=== PATIENT | female | born 1970 | race Two or more races ===

== ENCOUNTER → 2020-06-09 | Outpatient (CLI) | payer OTHER ==
[~2020-06-09] MED LIST: AMITRIPTYLINE H75 MG; AMITRIPTYLINE150 MG; AMLODIPINE BES2.5 MG; AMLODIPINE BESYL5 MG; ARMOUR THYROID30 M1; BUSPIRONE HCL30 MG; CELEBREX100 MG PO; CYMBALTA20 MG; DIVALPROEX SOD500 M1; DOXEPIN HCL10 MG; DULOXETINE HCL60 MG; LAMICTAL150 MG; LYRICA200 MG; NALTREXONE HCL50 MG; NORVASC5 MG PO; RISPERIDONE0.5 MG; SILVADENE20 GM TP; SKELAXIN800 MG PO; SYNTHROID50 MCG; XANAX0.25 MG
== END | disposition home or self-care (01) ==
LOC: MAMO-SONO 08:00
PROVIDERS: ATTEND General Practice
DX: Z12.39 Encounter for other screening for malignant neoplasm of breast (principal)

== ENCOUNTER 2020-12-27 11:23 | Outpatient (CLI) | payer OTHER | END 2020-12-27 11:35 | disposition home or self-care (01) | LOC: RAD 11:23 | PROVIDERS: ATTEND Internal Medicine Rheumatology | DX: M51.37 Other intervertebral disc degeneration, lumbosacral region (principal); M62.838 Other muscle spasm; M51.26 Other intervertebral disc displacement, lumbar region; M43.22 Fusion of spine, cervical region; M79.0 Rheumatism, unspecified ==

== ENCOUNTER 2021-08-07 18:07 | Emergency (ER) | payer OTHER ==
[~2021-08-07] VITALS: Ht 162.6 cm; Wt 79.8 kg
[2021-08-07] MEDS ORDERED: LAMOTRIGINE100 MG (19:57)
[2021-08-07] MEDS ORDERED: FLUOXETINE HCL20 MG (19:57)
[2021-08-07] MEDS ORDERED: RESTORIL30 MG (19:58)
[2021-08-07] MEDS ORDERED: TOPAMAX25 MG (19:58)
[2021-08-07] MEDS ORDERED: TRAZODONE HCL150 MG (19:58)
[2021-08-07] MEDS ORDERED: BUPROPION HCL100 MG (19:59)
[2021-08-07] MEDS ORDERED: ZESTRIL5 MG (19:59)
[2021-08-07] MEDS ORDERED: TRILEPTAL300 MG (19:59)
[2021-08-07] MEDS ORDERED: QUETIAPINE FUM400 M1 (20:00)
== END 2021-08-07 23:51 | disposition home or self-care (01) ==
LOC: ER 18:07
DX: R33.9 Retention of urine, unspecified (principal); R76.0 Raised antibody titer
CPT/HCPCS: 74177; Q9965

== ENCOUNTER 2021-08-26 09:17 | Outpatient (CLI) | payer OTHER ==
[~2021-08-26 09:17] MED LIST changes: +BUPROPION HCL100 MG; +FLUOXETINE HCL20 MG; +LAMOTRIGINE100 MG; +QUETIAPINE FUM400 M1; +RESTORIL30 MG; +TOPAMAX25 MG; +TRAZODONE HCL150 MG; +TRILEPTAL300 MG; +ZESTRIL5 MG
== END 2021-08-26 09:26 | disposition home or self-care (01) ==
LOC: SONOGRAMA 09:17 → MAMO-SONO 09:45
PROVIDERS: ATTEND Obstetrics & Gynecology
DX: N95.0 Postmenopausal bleeding (principal)

== ENCOUNTER 2021-09-17 22:36 | Emergency (ER) | payer OTHER ==
[~2021-09-17] VITALS: Ht 162.6 cm; Wt 72.6 kg
[2021-09-18] MEDS ORDERED: VISTARIL25 MG PO (02:07)
[2021-09-18] MEDS ORDERED: MEDROLPACK PO (19:42)
[2021-09-18] MEDS ORDERED: DUI500 PO (19:43)
== END 2021-09-18 02:46 | disposition home or self-care (01) ==
LOC: ER 22:36
DX: F41.9 Anxiety disorder, unspecified (principal)

== ENCOUNTER 2021-09-18 17:58 | Emergency (ER) | payer OTHER ==
[~2021-09-18] VITALS: Ht 162.6 cm; Wt 65.8 kg
[~2021-09-18 17:58] MED LIST changes: +VISTARIL25 MG PO
[2021-09-18] MEDS ORDERED: MEDROLPACK PO (19:42)
[2021-09-18] MEDS ORDERED: DUI500 PO (19:43)
== END 2021-09-18 20:19 | disposition home or self-care (01) ==
LOC: ER 17:58
DX: R42 Dizziness and giddiness (principal); R53.1 Weakness; G40.919 Epilepsy, unspecified, intractable, without status epilepticus

== ENCOUNTER → 2021-10-25 | Emergency (ER) | payer OTHER ==
[~2021-10-25] VITALS: Ht 162.6 cm; Wt 63.5 kg
[~2021-10-25] MED LIST changes: +DUI500 PO; +MEDROLPACK PO
== END | disposition left against medical advice (07) ==
LOC: ER 19:06
DX: Z53.21 Procedure and treatment not carried out due to patient leaving prior to being seen by health care provider (principal)

== ENCOUNTER 2021-10-30 19:50 | Emergency (ER) | payer OTHER ==
[~2021-10-30] VITALS: Ht 162.6 cm; Wt 68.0 kg
== END 2021-10-30 23:25 | disposition home or self-care (01) ==
LOC: ER 19:50
DX: S80.212A Abrasion, left knee, initial encounter (principal); S99.911A Unspecified injury of right ankle, initial encounter; S89.91XA Unspecified injury of right lower leg, initial encounter; F41.8 Other specified anxiety disorders; W19.XXXA Unspecified fall, initial encounter; Y92.89 Other specified places as the place of occurrence of the external cause

== ENCOUNTER 2022-01-11 11:00 | Day surgery (SDC) | payer OTHER ==
[~2022-01-11 11:00] MED LIST changes: +LAMICTAL200 MG PO; +SYNTHROID75 MCG PO; +WELLBUTRIN SR200 MG PO
== END 2022-01-11 21:45 | disposition home or self-care (01) ==
LOC: CIR.AMB 11:00
PROVIDERS: ATTEND Obstetrics & Gynecology
DX: N84.0 Polyp of corpus uteri (principal); Z86.16 Personal history of COVID-19; I10 Essential (primary) hypertension; Z87.891 Personal history of nicotine dependence; E03.9 Hypothyroidism, unspecified; M79.7 Fibromyalgia; F41.9 Anxiety disorder, unspecified; G43.909 Migraine, unspecified, not intractable, without status migrainosus; F31.81 Bipolar II disorder

== ENCOUNTER 2022-02-07 13:31 | Outpatient (CLI) | payer OTHER | END 2022-02-07 13:32 | disposition home or self-care (01) | LOC: SONOGRAMA 13:31 | PROVIDERS: ATTEND General Practice | DX: M25.471 Effusion, right ankle (principal) ==

== ENCOUNTER 2022-03-15 12:53 | Outpatient (CLI) | payer OTHER | END 2022-03-15 12:57 | disposition home or self-care (01) | LOC: MRI 12:53 | PROVIDERS: ATTEND Orthopaedic Surgery | DX: S93.421S Sprain of deltoid ligament of right ankle, sequela (principal) | CPT/HCPCS: 73721 ==

== ENCOUNTER 2022-04-26 14:45 | Outpatient (CLI) | payer OTHER | END 2022-04-26 15:03 | disposition home or self-care (01) | LOC: RAD 14:45 | DX: M06.4 Inflammatory polyarthropathy (principal) ==

== ENCOUNTER 2022-04-27 14:36 | Outpatient (CLI) | payer OTHER | END 2022-04-27 14:46 | disposition home or self-care (01) | LOC: RAD 14:36 | PROVIDERS: ATTEND Orthopaedic Surgery | DX: S92.011A Displaced fracture of body of right calcaneus, initial encounter for closed fracture (principal); X58.XXXA Exposure to other specified factors, initial encounter; Y93.9 Activity, unspecified; Y92.9 Unspecified place or not applicable; Y99.9 Unspecified external cause status ==

== ENCOUNTER 2022-07-11 12:50 | Outpatient (CLI) | payer OTHER | END 2022-07-11 12:54 | disposition home or self-care (01) | LOC: RAD 12:50 | DX: S92.041A Displaced other fracture of tuberosity of right calcaneus, initial encounter for closed fracture (principal) ==

== ENCOUNTER 2022-08-01 12:50 | Outpatient (CLI) | payer OTHER | END 2022-08-01 12:52 | disposition home or self-care (01) | LOC: RAD 12:50 | DX: R07.89 Other chest pain (principal) ==

== ENCOUNTER 2023-10-04 13:16 | Outpatient (CLI) | payer OTHER | END 2023-10-04 13:21 | disposition home or self-care (01) | LOC: NUCLEAR 13:16 | PROVIDERS: ATTEND Physical Medicine & Rehabilitation | DX: M85.10 Skeletal fluorosis, unspecified site (principal) ==

== ENCOUNTER 2023-10-08 14:36 | Outpatient (CLI) | payer OTHER | END 2023-10-08 14:48 | disposition home or self-care (01) | LOC: MAMO-SONO 14:36 | DX: Z12.31 Encounter for screening mammogram for malignant neoplasm of breast (principal) ==

== ENCOUNTER 2023-12-17 13:34 | Outpatient (CLI) | payer OTHER | END 2023-12-17 13:39 | disposition home or self-care (01) | LOC: RAD 13:34 | DX: M19.072 Primary osteoarthritis, left ankle and foot (principal); S92.901K Unspecified fracture of right foot, subsequent encounter for fracture with nonunion ==

== ENCOUNTER 2024-06-09 14:42 | Outpatient (CLI) | payer OTHER ==
[~2024-06-09 14:42] MED LIST changes: +ANALPRAM HC 2.530 GM RECTAL
== END 2024-06-09 14:51 | disposition home or self-care (01) ==
LOC: TOM 14:42
DX: M19.071 Primary osteoarthritis, right ankle and foot (principal)

== ENCOUNTER 2024-08-28 15:29 | Outpatient (CLI) | payer OTHER | END 2024-08-28 15:33 | disposition home or self-care (01) | LOC: RAD 15:29 | DX: M19.071 Primary osteoarthritis, right ankle and foot (principal) ==

== ENCOUNTER 2024-10-15 12:53 | Outpatient (CLI) | payer OTHER | END 2024-10-15 13:03 | disposition home or self-care (01) | LOC: SONOGRAMA 12:53 | DX: D25.9 Leiomyoma of uterus, unspecified (principal); Z01.419 Encounter for gynecological examination (general) (routine) without abnormal findings | CPT/HCPCS: 73218 ==

== ENCOUNTER → 2024-12-30 | Emergency (ER) | payer OTHER ==
[~2024-12-30] VITALS: Ht 157.5 cm; Wt 71.2 kg
[~2024-12-30] MED LIST changes: +LACTULOSE 20 G/30 ML BLIST.PACK ONE; +LACTULOSE 20 G/30 ML BLIST.PACK PO ONE; +MAGNESIUM HYDROXIDE 30 ML BLIST.PACK PO ONE; +MAGNESIUM HYDROXIDE 400 MG/5 ML ML PO ONE; +MINERAL OIL 30 ML BLIST.PACK ONE; +MINERAL OIL 30 ML BLIST.PACK PO ONE
== END | disposition home or self-care (01) ==
LOC: ER 14:21
DX: K59.00 Constipation, unspecified (principal)

== ENCOUNTER 2025-04-28 12:50 | Outpatient (CLI) | payer OTHER ==
[~2025-04-28 12:50] MED LIST changes: -LACTULOSE 20 G/30 ML BLIST.PACK ONE; -LACTULOSE 20 G/30 ML BLIST.PACK PO ONE; -MAGNESIUM HYDROXIDE 30 ML BLIST.PACK PO ONE; -MAGNESIUM HYDROXIDE 400 MG/5 ML ML PO ONE; -MINERAL OIL 30 ML BLIST.PACK ONE; -MINERAL OIL 30 ML BLIST.PACK PO ONE
== END 2025-04-28 12:59 | disposition home or self-care (01) ==
LOC: SONOGRAMA 12:50
DX: R39.198 Other difficulties with micturition (principal)

== ENCOUNTER 2025-05-28 13:42 | Outpatient (CLI) | payer OTHER | END 2025-05-28 13:49 | disposition home or self-care (01) | LOC: RAD 13:42 | PROVIDERS: ATTEND Physical Medicine & Rehabilitation | DX: S92.001D Unspecified fracture of right calcaneus, subsequent encounter for fracture with routine healing (principal); X58.XXXD Exposure to other specified factors, subsequent encounter ==

== ENCOUNTER 2025-10-05 15:38 | Outpatient (CLI) | payer OTHER | END 2025-10-05 15:41 | disposition home or self-care (01) | LOC: RAD 15:38 | PROVIDERS: ATTEND Physical Medicine & Rehabilitation | DX: M77.31 Calcaneal spur, right foot (principal); M77.32 Calcaneal spur, left foot; M25.531 Pain in right wrist; M25.532 Pain in left wrist ==

== ENCOUNTER 2025-10-15 19:39 | Inpatient (IN) | payer OTHER ==
[~2025-10-15] VITALS: Ht 157.5 cm; Wt 69.9 kg
--- NOTE | 2025-10-15 20:10 | NUR ---
PACIENTE ALERTA Y ORIENTADA X3 LA MISMA REFIERE QUE A TENIDO NAUSIAS Y 2 VOMITOS Y PADESE DE ATAQUES DE ANCIEDA. S/V ESTABLE DENTRO DE MAE CONDICION. PACIENTE EN ESPERA DE EVALUACION MEDICA.
[2025-10-15] MEDS ORDERED: ONDANSETRON HCL 2 MG/ML VIAL IV STA (20:22)
[2025-10-15] MEDS ORDERED: FAMOTIDINE/PF 20 MG/2 ML VIAL IV STA (20:22)
[2025-10-15] MEDS ORDERED: 0.9 % SODIUM CHLORIDE 1,000 ML IV STA (20:22)
[2025-10-15] MEDS ORDERED: FAMOTIDINE/PF 20 MG/2 ML VIAL ONE (20:24)
[2025-10-15] MEDS ORDERED: ONDANSETRON HCL 2 MG/ML VIAL ONE (20:24)
--- NOTE | 2025-10-15 20:46 | NUR ---
SE ORIENTA A PACIENTE SOBRE TRATAMIENTO MEDICO, REFIERE ENTENDER. SE REALIZAN MUESTRAS DE LABORATORIO BAJO MEDIDAS ASEPTICAS. SE ADMINISTRAN MEDICAMENTOS JOJO ORDEN MEDICA. PENDIENTE RE-EVALUACION MEDICA.
[2025-10-15 22:04] LABS: ERYTHROCYTE SEDIMENTATION RATE 6 mm/hr (0-30)
[2025-10-15 22:13] LABS: BASO % 0.0 % (0.1-1.2); EOS # 0.00 (0.04-0.54); EOS % 0.0 % (0.7-7.0); LYMPH # 0.20 (1.18-3.74); LYMPH % 3.2 % (19.3-53.1); MEAN PLATELET VOLUME 9.40 fl (9.4-12.4); MONO # 0.39 (0.24-0.82); MONO % 6.3 % (4.7-12.5); NEUT # 5.59 (1.56-6.13); NEUT % 90.0 % (34.0-71.1); RED CELL DISTRIBUTION WIDTH 11.2 % (11.6-14.4)
[2025-10-15 22:25] LABS: INR 0.99
[2025-10-15 22:44] LABS: ALT/SGPT 96 U/L (12-78); AST/SGOT 160 U/L (15-37); BILIRUBIN TOTAL 1.09 mg/dL (0.3-1.2); BUN CREA RATIO 16 (7.0-25.0); CREATININE SERUM 0.67 mg/dL (0.55-1.02); GFR 92.43; GLOBULINA 3.7 G/DL (2.4-3.5); GLUCOSE FASTING 119 mg/dL (65-100); OSMOLALITY SERUM 250 MOSM/KG (275-295)
[2025-10-15 23:17] LABS: URINE APPEARANCE Clear; URINE BILIRRUBIN Negative (NEGATIVE); URINE BLOOD Negative; URINE COLOR Yellow; URINE GLUCOSE Negative (NEGATIVE); URINE LEUKOCYTE Trace; URINE NITRATE Negative; URINE PROTEIN 30 (NEGATIVE); URINE UROBILINOGEN 0.2 E.U./dl
[2025-10-15 23:21] LABS: URINE BACTERIA 372.0 uL (0.0-1933); URINE CAST 4.25 uL (0.0-1.40); URINE EPITHELIAL CELLS 32.9 uL (0.0-38.8); URINE RBC 11.5 uL (0.0-20.8); URINE WBC 14.3 uL (0.0-23.2)
[2025-10-15 23:49] LABS: URINE KETONE 40 (NEGATIVE)
[2025-10-16] MEDS ORDERED: MORPHINE SULFATE 2 MG/ML SYRINGE IV STA (01:28)
[2025-10-16] MEDS ORDERED: 0.9 % SODIUM CHLORIDE 1,000 ML IV SCH (01:30)
[2025-10-16] MEDS ORDERED: KETOROLAC TROMETHAMINE 30 MG VIAL IV STA (03:52)
[2025-10-16] MEDS ORDERED: ORPHENADRINE CITRATE 30 MG/ML AMPUL IV STA (03:52)
[2025-10-16] MEDS ORDERED: ORPHENADRINE CITRATE 30 MG/ML AMPUL ONE (03:56)
[2025-10-16] MEDS ORDERED: KETOROLAC TROMETHAMINE 30 MG VIAL ONE (03:56)
[2025-10-16] MEDS ORDERED: ACETAMINOPHEN 500 MG GEL..CAP PO ONE (08:25)
[2025-10-16] MEDS ORDERED: ATORVASTATIN CALCIUM 40 MG TABLET PO SCH (12:19)
[2025-10-16] MEDS ORDERED: LOSARTAN POTASSIUM 100 MG TABLET PO SCH (12:19)
[2025-10-16] MEDS ORDERED: FAMOTIDINE/PF 20 MG in 0.9 % SODIUM CHLORIDE 8 ML IV PUSH SCH (12:27)
[2025-10-16] MEDS ORDERED: ACETAMINOPHEN 325 MG TABLET PO PRN (12:30)
[2025-10-16] MEDS ORDERED: ONDANSETRON HCL 4 MG in 0.9 % SODIUM CHLORIDE 50 ML IV PRN (12:30)
[2025-10-16 13:35] VITALS: BP 100/70
[2025-10-17 03:25] VITALS: BP 141/93; O2SAT 100
[2025-10-17 07:47] LABS: BUN CREA RATIO 15.0 (7.0-25.0); CREATININE SERUM 0.52 mg/dL (0.55-1.02); GFR 123.83; GLUCOSE FASTING 73.0 mg/dL (65-100); OSMOLALITY SERUM 258.0 MOSM/KG (275-295)
[2025-10-17 09:15] VITALS: BP 151/87; O2SAT 100
[2025-10-17] MEDS ORDERED: MAGNESIUM SULFATE IN WATER 50 ML IV NR (16:15)
[2025-10-17] MEDS ORDERED: NAPH,MB-DB/K PH,MBDB 1 PKT PACKET PO SCH (17:00)
[2025-10-17 17:42] VITALS: BP 165/100; O2SAT 100
[2025-10-18 02:11] VITALS: BP 148/66; BP 148/96; O2SAT 97
[2025-10-18 08:15] LABS: BUN CREA RATIO 15.0 (7.0-25.0); CREATININE SERUM 0.47 mg/dL (0.55-1.02); GFR 139.15; GLUCOSE FASTING 75.0 mg/dL (65-100); OSMOLALITY SERUM 265.0 MOSM/KG (275-295)
[2025-10-18 09:58] VITALS: BP 152/87; O2SAT 98
[2025-10-18 17:05] VITALS: BP 130/76; O2SAT 100
== END 2025-10-18 17:22 | disposition home or self-care (01) | DRG 641 ==
LOC: ER 19:40 → MEDI 10-16 12:29
PROVIDERS: General Practice; Internal Medicine; Physician Assistant Medical; ADMIT Internal Medicine; ATTEND Internal Medicine
PROC: BW28ZZZ Computerized Tomography (CT Scan) of Head (ICD-10-PCS; principal; 2025-10-15)
PROC: BW40ZZZ Ultrasonography of Abdomen (ICD-10-PCS; 2025-10-16)
PROC: 4A12X4Z Monitoring of Cardiac Electrical Activity, External Approach (ICD-10-PCS; 2025-10-16)
DX: E87.1 Hypo-osmolality and hyponatremia (principal); R42 Dizziness and giddiness; I10 Essential (primary) hypertension; R41.82 Altered mental status, unspecified

== ENCOUNTER → 2025-10-31 | Emergency (ER) | payer OTHER ==
[~2025-10-31] VITALS: Ht 157.5 cm; Wt 66.7 kg
[~2025-10-31] MED LIST changes: +PANTOPRAZOLE SODIUM 40 MG/VIAL VIAL IV STA; +PROMETHAZINE HCL 50 MG/ML AMPUL IM ONE; +PROMETHAZINE HCL 50 MG/ML AMPUL IV STA
== END | disposition left against medical advice (07) ==
LOC: ER 20:59
DX: R10.9 Unspecified abdominal pain (principal); R11.2 Nausea with vomiting, unspecified